=== PATIENT | male | born 1935 | race Caucasian/White ===

== ENCOUNTER 2017-07-13 10:27 | Emergency (ER) | payer OTHER ==
[~2017-07-13] VITALS: Ht 170.2 cm; Wt 93.0 kg
[~2017-07-13 10:27] MED LIST: ASPI-113 PO; CLOP1TAB15 PO; MCRKUNK PO; METO25TA56 PO; OMEG10007 PO; SIMV40TA2 PO; VITA400C15 PO
[2017-07-13 10:30] VITALS: TEMP 36.5; Ht 170.2 cm; Wt 93.0 kg
[2017-07-13] MEDS ORDERED: ASPI81TA28 PO (10:53)
[2017-07-13] MEDS ORDERED: LISI-729 PO (10:57)
[2017-07-13] MEDS ORDERED: SIMV40TA2 PO (10:59)
[2017-07-13] MEDS ORDERED: OMEG10007 PO (10:59)
[2017-07-13] MEDS ORDERED: METO25TA56 PO (10:59)
[2017-07-13] MEDS ORDERED: DEXAMETHASONE SOD INJ 4 MG/ML 5 ML VIAL IM STA (11:11)
[2017-07-13] MEDS ORDERED: DEXAMETHASONE SOD INJ 10 MG/ML VIAL IM ONE (11:15)
--- NOTE | 2017-07-13 11:47 | EMERGENCY ROOM VISIT NOTE ---
ED Visit Note First contact with patient: 11:00 CHIEF COMPLAINT: Low back pain HISTORY OF PRESENT ILLNESS: This 81-year-old male with a history of intermittent chronic low back pain presents the ER today with pain in his right lower back which goes into his right thigh. He states this started 2 days ago. The patient denies any numbness and tingling down his leg. The patient states that it hurts to move. He has had this intermittently in the past for many years. The patient states that he wants to go hunting with his son and he has tried [id number] medications without any relief. The patient denies any loss of bowel or bladder control. The patient denies any saddle anesthesia or any other urinary symptoms. REVIEW OF SYSTEMS: 10 system review was performed and was negative unless stated otherwise history of present illness. PMH: Chronic back pain. CAD, hypertension, hernia repair, appendectomy, bilateral knee replacements, tonsillectomy, adenoidectomy SOCIAL HISTORY: Patient lives alone. The patient denies any tobacco or alcohol use. PHYSICAL EXAM: Vital Signs normal: Reviewed Nurse's notes and agree. GEN.: 81- year-old white male appears in no acute distress. MENTAL STATUS: Alert and oriented in no acute distress. LUMBAR SPINE: No gross bony abnormality noted. Patient is nontender to palpation over the spinous processes. He is tender to palpation over the right paravertebral region, left side nontender. He has full range of motion of the lumbar spine with pain elicited with flexion, extension and right lateral bending. Muscle strength is 5 out of 5 bilateral lower extremities and symmetrical. NEURO: Patient is able to heel and toe walk without difficulty. Unable to elicit patellar reflexes since the patient has bilateral knee replacements. Able elicit bilateral Achilles reflexes which are 2+. Negative straight leg raise bilaterally. EMERGENCY DEPARTMENT COURSE: The patient was evaluated by myself and independently by Dr. Grace who agrees with treatment plan. The patient was given Decadron 10 mg IM. The patient was discharged home in stable condition. DIAGNOSIS: Lumbar strain DISCHARGE INSTRUCTIONS AND TREATMENT: Take Medrol dosepak as prescribed. Tylenol as needed for pain.. Rx is given for Ultram 50 mg. 1tablets every 6 hours as needed for more severe pain. Do not drive while taking the Ultram. Patient was also given Rx for Flexeril 10 mg. One tablet p.o. every 8 hours for muscle spasms. Dispense [address] taking the Flexeril. Avoid staying in any one position for an extended period of time. If symptoms persist or worsen, follow up with your family doctor for referral for additional testing. Take only Tylenol while you are hunting.!!!! Current/Historical Medications Scheduled Aspirin (Aspirin Ec), 81 MG PO QAM Fish Oil ([place]-3), 1 CAP PO BID Lisinopril (Zestril), 2.5 MG PO DAILY Metoprolol Tartrate (Lopressor) (Lopressor), 25 MG PO BID Potassium Chloride (Micro-K Ext Rel Unknown Dose), 99 MG PO DAILY Simvastatin (Zocor), 40 MG PO QPM Tocopheryl Acet,Dl-Alpha (Vitamin E), 400 INTER.UNIT PO QAM Allergies Coded Allergies: Sulfa Drugs (Verified Allergy, Intermediate, RASH, 07/13/17) Vital Signs Date Time Temp Pulse Resp B/P (MAP) Pulse Ox O2 Delivery O2 Flow Rate FiO2 07/13/17 10:30 36.5 61 16 139/74 93 Room Air Medications Administered Medications (Trade) Dose Ordered Sig/Lupe Route Start Time Stop Time Status Last Admin Dose Admin Dexamethasone Sodium Phosphate (Decadron Inj) 10 mg 1115 ONCE IM 07/13/17 11:15 07/13/17 11:16 DC 07/13/17 11:15 10 MG Departure Information Referrals Manjeet Mccollum M.D. (PCP) Patient Instructions My [facility]
[2017-07-13] MEDS ORDERED: TRAM-10 PO (11:50)
[2017-07-13] MEDS ORDERED: CYCL10TA6 PO (11:50)
[2017-07-13] MEDS ORDERED: METH4PAK PO (11:50)
[2017-07-13 12:06] VITALS: BP 129/76; PULSE 63; O2SAT 96
--- NOTE | 2017-07-13 12:27 | EMERGENCY ROOM VISIT NOTE ---
ED Visit Note First contact with patient: 11:00 The patient was seen and examined with Kita Westbrook PA-C. I agree with the history, physical and findings. Please see the note for disposition and details.
== END 2017-07-13 12:07 | disposition home or self-care (01) ==
LOC: C.EDB 10:30 → C.EDD 12:07
DX: S39.012A Strain of muscle, fascia and tendon of lower back, initial encounter (principal); X58.XXXA Exposure to other specified factors, initial encounter; G89.29 Other chronic pain; I25.10 Atherosclerotic heart disease of native coronary artery without angina pectoris; I10 Essential (primary) hypertension; Z96.653 Presence of artificial knee joint, bilateral; Z79.82 Long term (current) use of aspirin; Z79.899 Other long term (current) drug therapy